=== PATIENT | female | born 1935 | race Caucasian/White ===

== ENCOUNTER 2016-09-05 12:23 | Observation (INO) | payer MEDICARE ==
[2016-09-05 13:01] LABS: HEMATOCRIT 43.2 % (36.0-48.0); MEAN CORPUS. HGB CONCENTRATION 34.7 g/dL (32.0-36.0); MEAN CORPUSCULAR HEMOGLOBIN 31.6 pg (29.0-35.0); MEAN PLATELET VOLUME 9.6 fL (7.4-10.4); PLATELET COUNT 223 X 10^3uL (130-440); RED BLOOD COUNT 4.74 X 10^6uL (4.20-6.10); RED CELL DISTRIBUTION WIDTH 12.1 % (11.5-14.5); WHITE BLOOD COUNT 7.9 X 10^3uL (3.9-10.7)
[2016-09-05 13:02] LABS: BASOPHILS 0.5 % (0.0-2.0); EOSINOPHILS 0.6 % (0.0-6.0); LYMPHOCYTES 22.4 % (20.0-40.0); LYMPHOCYTES# 1.8 X 10^3uL (0.8-3.8); MONOCYTES# 0.8 X 10^3uL (0.2-1.0); NEUTROPHILS 6.5 % (54.0-75.0); NEUTROPHILS# 5.3 X 10^3uL (2.6-6.7)
[2016-09-05 13:10] LABS: BLOOD UREA NITROGEN 16 mg/dL (7-17); CALCIUM 9.2 mg/dL (8.4-10.2); CHLORIDE 102 mmol/L (98-107); CREATININE 0.7 mg/dL (0.5-1.0); GLUCOSE 81 mg/dL (70-100); POTASSIUM 4.4 mmol/L (3.5-5.1); SODIUM 139 mmol/L (137-145)
[2016-09-05] MEDS ORDERED: NICARDIPINE IV ONE (13:14)
[2016-09-05] MEDS ORDERED: NS IV ONE (13:14)
[2016-09-05 13:22] LABS: TROPONIN I < 0.012 ng/mL (0.00-0.034)
--- NOTE | 2016-09-05 13:24 | CT REPORT ---
HISTORY: Arm weakness. COMPARISON: None. TECHNIQUE: Axial non-contrast images obtained from skull vertex through foramen magnum. Dose reduction technique was utilized. FINDINGS: The ventricles, sulci and cisterns are prominent, consistent with age related tissue loss. There is p atchy low attenuation within the periventricular and subcortical white matter, nonspecific in appeara nce. The fall-white distinction is well maintained. Focal low attenuation in the left insula (image 1 0, series 2) at the level of the anterior commissure may reflect perivascular space or lacunar infarc t of indeterminate age. There is no intra-axial hemorrhage, mass, midline shift or large vessel acute territorial infarct. There is no extra axial fluid collection. The globes are intact. The paranasal sinuses appear clear. The mastoids appear well aerated. The bone s and soft tissues appear unremarkable. IMPRESSION: No evidence of acute intracranial hemorrhage or large vessel acute territorial infarct. Moderate cerebral atrophy and scattered white matter changes, nonspecific in appearance, likely refle cting the sequela of small vessel ischemic disease. Low-attenuation focus within the left insula may reflect lacunar infarct of indeterminate age versus perivascular space. The abnormality may further evaluated with MRI. Final Electronic Signature: This report was electronically signed by Milan Eastman MD on 09/06/19 17 1:22 PM. enrico /
--- NOTE | 2016-09-05 13:46 | RADIOLOGY REPORT ---
A limited single portable view of the chest at 1247 hours without prior films for comparison, demonstrates the heart and vessels to be unremarkable. Calcifications and surgical clips are projecting in the right mid lung field region, presumably involve the right breast. No infiltrate, fluid or pneumothorax is seen. IMPRESSION: No acute cardiopulmonary abnormality is identified. Probable right breast post surgical changes are noted. MTDD
--- NOTE | 2016-09-05 15:26 | MRI REPORT ---
HISTORY: Right-sided weakness. Evaluate for stroke. COMPARISON: None. TECHNIQUE: Multiplanar multi sequential imaging of the brain obtained without IV gadolinium. FINDINGS: There is moderate cerebral volume loss. Ventricles are normal in size. Multiple foci of chronic small vessel ischemic disease involves the cerebral white matter and. No focus of restricted diffusion is demonstrated. There is no hemorrhage or extra-axial fluid collection or vascular flow voids appear no rmal. No intracranial mass is demonstrated. Orbits and visualized paranasal sinuses appear unremarkable. A left parotid gland mass is lobulated and measures 2.6 x 1.6 cm. The mass is hypointense on T1-weighte d images and hyperintense on T2-weighted images, consistent with mostly fluid signal intensity. IMPRESSION: 1. Scattered foci of chronic small vessel ischemic disease in the cerebral white matter. No acute inf arct or hemorrhage. 2. Moderate cerebral atrophy. 3. 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 Recommend ENT consultation. If further bakari ging is warranted, dedicated MRI of the face without and with contrast could be performed for further evaluation. Results were personally discussed with Dr. Dillon Allen on 09/05/2016 at 3:20 PM. Final Electronic Signature: This report was electronically signed by Rian Darnell MD on 09/05/2016 3:23 PM. [email or web address] /
[2016-09-05] MEDS ORDERED: HOME MEDICATION LIST NEEDED 1 EA EACH MC ONE (15:33)
--- NOTE | 2016-09-05 15:56 | ER NURSING DOCUMENTATION ---
Nurse's Notes [facility] Name:Janeth Pepe Age:80 yrs Sex:Female :1935 Arrival Date:09/05/2016 Time:12:23 BedTrauma-A Private MD:Lilli Patel Diagnosis:Altered Mental Status Presentation: 09/05 12:27 Acuity: MARILEE 2 st 12:39 Presenting complaint: Patient states: right arm weakness since yesterday sometime. sc1 She's not sure exactly what time she noticed it. Transition of care: Home. Time Last Known Well for patient was yesterday. 12:39 Method Of Arrival: Private Vehicle sc1 15:54 No acute neurological deficit is noted. ak1 Triage Assessment: 12:49 The onset of the patients symptoms was more than six hours ago. General: Appears in no sc1 apparent distress, well developed, well nourished, well groomed, Behavior is cooperative, pleasant. Pain: Denies pain. Neuro: Reports weakness in right arm since Yesterday. Historical: - Allergies: PENICILLINS; - Home Meds: 1. paroxetine HCl 20 mg oral tab 1 tab once daily 2. Latanoprost 3. Prilosec Oral 4. Zyrtec Oral 5. aspirin 81 mg oral tab 1 tab once daily 6. ProAir 7. pravastatin 20 mg oral tab 1 tab once daily 8. Pulmicort Inhl - PMHx: Breast CA; GLAUCOMA; ASTHMA; Hypoxemia; - PSHx: Hysterectomy; - Ebola Screening: : Patient negative for fever greater than or equal to 101.5 degrees Fahrenheit, and additional compatible Ebola Virus Disease symptoms. Patient denies exposure to infectious person. Patient denies travel to an Ebola-affected area in the 21 days before illness onset. No symptoms or risks identified at this time. . - Immunization history: Pneumococcal vaccine is up to date, Flu Vaccine < 1 year. - Social history: Smoking status: Patient states was never smoker of tobacco. Patient/guardian denies using alcohol, street drugs, IV drugs, marijuana. Screenin:52 Infectious Disease Risk None. Abuse screen: Denies threats or abuse. Nutritional sc1 screening: No deficits noted. Assessment: 15:40 Reassessment: No changes from previously documented assessment. Patient appears in no sc1 apparent distress at this time. See Triage Assessment done by same RN. Vital Signs: 12:30 BP 128 / 69 (auto/); sc1 12:45 BP 115 / 75 (auto/); sc1 12:45 Pulse 91; Resp 18; Temp 98.2; Pulse Ox 93% on R/A; sc1 15:50 BP 137 / 69 (auto/); sc1 15:50 Pulse 73; Resp 16; Pulse Ox 95% on R/A; sc1 NIH Stroke Scale Scores: 12:39 NIHSS Score: 0 ak1 ED Course: 12:24 Patient arrived in ED. lm3 12:24 Lilli Patel MD is Private Physician. lm3 12:26 Dillon Allen MD is Attending Physician. sc 12:[address] 12:34 EKG done per protocol. Performed by ED Staff. Shown to ED physician. st 12:35 Labs drawn. (by ED staff). Sent per order to lab. Inserted peripheral IV: 20 gauge in ak1 left antecubital area and blood collected. 12:39 Lisa Lowery, RN is Primary Nurse. sc1 12:50 Valuables Remains with patient. steam setter on. Pulse ox on. NIBP on. sc1 12:54 CHEST; SINGLE VIEW [id number] In Process Unspecified. EDMS 13:05 CAT SCAN; HEAD W/O CON [id number] In Process Unspecified. EDMS 13:10 CAT SCAN; HEAD W/O CON [id number] In Process Unspecified. EDMS 13:10 CHEST; SINGLE VIEW [id number] Sent. dnn 13:10 CAT SCAN; HEAD W/O CON [id number] Sent. dnn 14:28 Patient moved to MRI. pm1 14:52 BRAIN W/O CONTRAST [id number] In Process Unspecified. EDMS 15:13 Patient moved back from MRI. pm1 15:36 Joleen Brooke DO is Admitting Physician. sc 15:52 EKG attached ak1 Administered Medications: 12:28 CANCELLED (Physician Discretion): niCARdipine IVPB 5 mg/hr IV at calculated rate sc continuous; May increase rate 2.5 mg/hr every 5 minutes to max 15 mg/hr Outcome: 15:36 Decision to Admit by Provider. sc 15:53 Admitted to Med/surg accompanied by nurse, via stretcher, with chart. sc1 15:53 Condition: stable 15:53 Instructed on need to admit 15:54 Patient left the ED. sc1 NIH Stroke Scale - NIH Stroke Score Date: 09/05/2016 Time: 12:39 Total Score = 0 1a. Level of Consciousness (LOC) - 0(Alert) 1b. Level of Consciousness (LOC) (Year & Age) - 0(Both) 1c. LOC Commands (Open & Closes Eyes/Personal Financial Counselor) - 0(Both) 2. Best Gaze (Lateral Gaze Paresis) - 0(Normal) 3. Visual Field Loss - 0(No visual loss) 4. Facial Palsy - 0(Normal) 5a. Left Arm: Motor (10-second hold) - 0(No drift) 5b. Right Arm: Motor (10-second hold) - 0(No drift) 6a. Left Leg: Motor (5-second hold ? always test supine) - 0(No drift) 6b. Right Leg: Motor (5-second hold ? always test supine) - 0(No drift) 7. Limb Ataxia (finger/nose & heel/cavazos ? test with eyes open) - 0(Absent) 8. Sensory Loss (pinprick arms/legs/face) - 0(Normal) 9. Best Language: Aphasia (description/naming/reading) - 0(No aphasia) 10. Dysarthria (speech clarity ? read or repeat words) - 0(Normal) 11. Extinction and Inattention (visual/tactile/auditory/spatial/personal) - 0(No abnormality) Initials: ak1 Signatures: Dispatcher [employer] EDMS Chichi Ambrocio RN RN st Campbell, Sandy, RN RN ak1 Dillon Allen MD MD sc McBride, Philisha 1 Yao Bassett Lisa 3
--- NOTE | 2016-09-05 15:56 | ER PHYSICIAN DOCUMENTATION ---
Physician Documentation [facility] Name:Janeth Pepe Age:80 yrs Sex:Female :1935 Arrival Date:09/05/2016 Time:12:23 BedTrauma-A Private MD:Lilli Patel ED, Scott Disposition: 09/05/16 15:36 Admit ordered for Joleen Brooke. Preliminary diagnosis is Altered Mental Status. - Bed requested for Medical/Surgical. - Condition is Good. - Problem is new. - Symptoms are unchanged. 23 HR OBS Yes HPI: 09/05 12:58 This 80 yrs old Female presents to ER via Private Vehicle with complaints of sc Weakness - arm. 12:58 The patient presents to the emergency department with weakness of the right upper sc extremity, that is mild, impaired coordination. Onset: The symptom(s)/episode began/occurred yesterday, 20 hour(s) ago. Context: occurred at home, occurred while the patient was gradual onset, unsure of exact time yesterday noon or sltly after but definitely at 8 pm and unchanged since. Associated signs and symptoms: The patient has no apparent associated signs or symptoms. Severity of symptoms: At their worst the symptoms were mild in the emergency department the symptoms are unchanged. Patient's baseline: Neuro: alert and fully oriented, Motor: no deficits, Ambulation: walks without assistance, Speech: normal, The patient has a previous history of heart murmur. The patient has not experienced similar symptoms in the past. Historical: - Allergies: PENICILLINS; - Home Meds: 1. paroxetine HCl 20 mg oral tab 1 tab once daily 2. Latanoprost 3. Prilosec Oral 4. Zyrtec Oral 5. aspirin 81 mg oral tab 1 tab once daily 6. ProAir 7. pravastatin 20 mg oral tab 1 tab once daily 8. Pulmicort Inhl - PMHx: Breast CA; GLAUCOMA; ASTHMA; Hypoxemia; - PSHx: Hysterectomy; - Ebola Screening: : Patient negative for fever greater than or equal to 101.5 degrees Fahrenheit, and additional compatible Ebola Virus Disease symptoms. Patient denies exposure to infectious person. Patient denies travel to an Ebola-affected area in the 21 days before illness onset. No symptoms or risks identified at this time. . - Immunization history: Pneumococcal vaccine is up to date, Flu Vaccine < 1 year. - Social history: Smoking status: Patient states was never smoker of tobacco. Patient/guardian denies using alcohol, street drugs, IV drugs, marijuana. ROS: 13:00 Constitutional: Negative for fever, chills, and weight loss. sc Eyes: Negative for injury, pain, redness, and discharge. ENT: Negative for injury, pain, and discharge. Neck: Negative for injury, pain, and swelling. Cardiovascular: Negative for chest pain, palpitations, and edema. Respiratory: Negative for shortness of breath, cough, wheezing, and pleuritic chest pain. Abdomen/GI: Negative for abdominal pain, nausea, vomiting, diarrhea, and constipation. Back: Negative for injury and pain. MS/Extremity: Negative for injury and deformity. 13:00 Skin: Negative for injury, rash, and discoloration. sc 13:00 Neuro: Positive for weakness, Negative for altered mental status, dizziness, gait disturbance, loss of consciousness, numbness, syncope, tingling. Exam: Constitutional: This is a well developed, well nourished patient who is awake, alert, and in no acute distress. Head/Face: Normocephalic, atraumatic. ENT: Nares patent. No nasal discharge, no septal abnormalities noted. Tympanic membranes are normal and external auditory canals are clear. Oropharynx with no redness, swelling, or masses, exudates, or evidence of obstruction, uvula midline. Mucous membranes moist. Neck: Trachea midline, no thyromegaly or masses palpated, and no cervical lymphadenopathy. Supple, full range of motion without nuchal rigidity, or vertebral point tenderness. No meningismus. Chest/axilla: Normal chest wall appearance and motion. Nontender with no deformity. No lesions are appreciated. Respiratory: Lungs have equal breath sounds bilaterally, clear to auscultation and percussion. No rales, rhonchi or wheezes noted. No increased work of breathing, no retractions or nasal flaring. Abdomen/GI: Soft, non-tender, with normal bowel sounds. No distension or tympany. No guarding or rebound. No evidence of tenderness throughout. Back: No spinal tenderness. No costovertebral tenderness. Full range of motion. 13:01 Skin: Warm, dry with normal turgor. Normal color with no rashes, no lesions, and no sc evidence of cellulitis. 13:01 Eyes: Pupils: equal, round, and reactive to light and accomodation. 13:01 Cardiovascular: Rate: normal, Rhythm: regular. 13:01 Neuro: Motor: is normal, Sensation: is normal, no obvious gross deficits. 13:01 Psych: Behavior/mood is pleasant, cooperative, anxious, Affect is calm, Oriented to person, place, time, Memory is normal. Vital Signs: 12:30 BP 128 / 69 (auto/); sc1 12:45 BP 115 / 75 (auto/); md1 12:45 Pulse 91; Resp 18; Temp 98.2; Pulse Ox 93% on R/A; sc1 15:50 BP 137 / 69 (auto/); md1 15:50 Pulse 73; Resp 16; Pulse Ox 95% on R/A; sc1 NIH Stroke Scale Scores: 12:39 NIHSS Score: 0 md1 MDM: 12:26 Patient medically screened. md 13:02 Neurological re-evaluation: normal neurological exam including cranial nerves, sc orientation, mentation, motor and sensory exam, cerebellar testing, GCS normal, and normal gait. The patient was last known to be well greater than 2 hours ago. Thrombolytics: No thrombolytic given due to patient's history due to unable to determine eligibility. Data reviewed: vital signs, nurses notes, old medical records, lab test result(s), EKG, radiologic studies, CT scan, plain films, and as a result, I will initiate a consult. Counseling: I had a detailed discussion with the patient and/or guardian regarding: the historical points, exam findings, and any diagnostic results supporting the discharge/admit diagnosis, lab results, radiology results, the need for further work-up and treatment in the hospital, the need to transfer to another facility. ECG:. 15:18 ED course: Discussed f/u needed for left parotid cystic mass, could be neoplasm. md 15:35 Physician consultation: Rolly Santana MD was called at 14:00, regarding patient's sc condition. 15:35 Transition of care: After a detail discussion of the patient's case, care is sc transferred to [facility]. 15:52 EKG attached [facility] [place] 09/05 13:02 Order name: CBC AUTO DIF, MDIF/RMOR IF IND; Complete Time: 13:27 EDID 09/05 13:27 Interpretation: Normal. md 09/05 13:23 Order name: BASIC METABOLIC PANEL; Complete Time: 13:32 EDID 09/05 13:23 Order name: TROPONIN I; Complete Time: 13:32 EDMS 09/06 05:48 Order name: BASIC METABOLIC PANEL [facility] 09/06 05:53 Order name: CBC AUTO DIF, MDIF/RMOR IF IND EDID 09/05 12:54 Order name: CHEST; SINGLE VIEW [id number]; Complete Time: 13:47 EDID 09/05 13:47 Interpretation: Normal. md 09/05 13:05 Order name: CAT SCAN; HEAD W/O CON [id number]; Complete Time: 13:27 EDID 09/05 13:27 Interpretation: Normal Except. md 09/05 13:26 Order name: CAT SCAN; HEAD W/O CON [id number]; Complete Time: 13:32 EDID 09/05 14:52 Order name: BRAIN W/O CONTRAST [id number]; Complete Time: 15:18 [facility] 09/05 15:18 Interpretation: Normal Except: left parotid mass. md 09/05 15:26 Order name: BRAIN W/O CONTRAST [id number] EDID 09/05 15:32 Order name: CHEST; SINGLE VIEW [id number] [facility] 09/05 12:27 Order name: 12-lead EKG; Complete Time: 12:41 md 09/05 12:27 Order name: Continuous Cardiac Monitoring; Complete Time: 13:00 md 09/05 12:27 Order name: I & O; Complete Time: 13:00 md 09/05 12:27 Order name: IV saline lock X2; Complete Time: 13:00 md 09/05 12:27 Order name: NIH Stroke Scale; Complete Time: 13:00 md 09/05 12:27 Order name: NPO; Complete Time: 13:00 md 09/05 12:27 Order name: Pulse Ox Continuous; Complete Time: 13:00 md 09/05 12:27 Order name: Elevate HOB 30 degrees; Complete Time: 13:00 md EC:02 Rate is 70 beats/min. Rhythm is regular. QRS [place] is Normal. MD interval is normal. QRS sc interval is normal. QT interval is normal. No Q waves. T waves are Normal. No ST changes noted. Clinical impression: Normal ECG. Interpreted by me. Reviewed by me. Dispensed Medications: 12:28 CANCELLED (Physician Discretion): niCARdipine IVPB 5 mg/hr IV at calculated rate sc continuous; May increase rate 2.5 mg/hr every 5 minutes to max 15 mg/hr NIH Stroke Scale - NIH Stroke Score Date: 09/05/2016 Time: 12:39 Total Score = 0 1a. Level of Consciousness (LOC) - 0(Alert) 1b. Level of Consciousness (LOC) (Year & Age) - 0(Both) 1c. LOC Commands (Open & Closes Eyes/Dining Room Cashier) - 0(Both) 2. Best Gaze (Lateral Gaze Paresis) - 0(Normal) 3. Visual Field Loss - 0(No visual loss) 4. Facial Palsy - 0(Normal) 5a. Left Arm: Motor (10-second hold) - 0(No drift) 5b. Right Arm: Motor (10-second hold) - 0(No drift) 6a. Left Leg: Motor (5-second hold ? always test supine) - 0(No drift) 6b. Right Leg: Motor (5-second hold ? always test supine) - 0(No drift) 7. Limb Ataxia (finger/nose & heel/cavazos ? test with eyes open) - 0(Absent) 8. Sensory Loss (pinprick arms/legs/face) - 0(Normal) 9. Best Language: Aphasia (description/naming/reading) - 0(No aphasia) 10. Dysarthria (speech clarity ? read or repeat words) - 0(Normal) 11. Extinction and Inattention (visual/tactile/auditory/spatial/personal) - 0(No abnormality) Initials: sc1 Signatures: Lisa Lowery RN RN md1 Dillon Allen MD MD md
[2016-09-05] MEDS ORDERED: ACETAMINOPHEN 325 MG TABLET PO PRN (17:04)
[2016-09-05] MEDS ORDERED: MAG-AL PLUS XS SUSP 30 ML UDC PO PRN (17:04)
[2016-09-05] MEDS ORDERED: ALBUTEROL HFA 1 INH INHALER INHALATION PRN (17:06)
[2016-09-05] MEDS ORDERED: PAROXETINE HCL 20 MG TABLET PO SCH (18:00)
--- NOTE | 2016-09-05 20:25 | HISTORY & PHYSICAL ---
DATE OF ADMISSION: 09/05/16 ATTENDING PHYSICIAN: Joleen Brooke MD PRIMARY CARE PHYSICIAN: Lilli Patel MD COVERING PHYSICIAN: Marco Antonio Harrison MD CHIEF COMPLAINT: Right hand loss of dexterity. HISTORY OF PRESENT ILLNESS: The patient is an 80-year-old female who first noticed some weakness and decreased dexterity in her right hand yesterday morning. She states that she was trying to do her hair and had some trouble navigating the brush which was atypical for her. Later that day she noted that her was watching her attempting to make a sandwich and she was having some difficulties with the use of her hand at that time. She subsequently continued to monitor her symptoms, and since they persisted, she did contact today triage and was recommended to come into the Emergency Room for further evaluation. Patient states that the symptoms have not really changed since she first noticed them yesterday, and she is very embarrassed by the fact that she is here at the hospital related to this cause. She denies any other neurological complaints. No loss of memory. No change in speech. No facial or other weakness. Patient is planning to leave early Friday morning to travel to [place] for her youngest grandsons graduation, and she would really like to make it to this and subsequently is willing to stay tonight for observation, but would like to go home tomorrow if possible. PAST MEDICAL HISTORY 1. History of breast cancer. 2. Anxiety. 3. History of rheumatic fever with mitral valve prolapse and aortic valve insufficiency. 4. Asthma. 5. Hypoxia. 6. Hyperlipidemia. 7. Glaucoma. PAST SURGICAL HISTORY 1. Hysterectomy in 1985. 2. Cataract surgery. 3. Tonsillectomy. FAMILY HISTORY: Her mother is in her 90s and had dementia. Father at 72 and of prostate cancer. Brother in his 60s from pneumonia and chronic obstructive pulmonary disease. SOCIAL HISTORY: Patient is a former smoker, but not for some time. She does drink alcohol occasionally. She denies any other drugs. MEDICATIONS Paroxetine 20 mg daily. Latanoprost. Eye drops. Prilosec. Zyrtec. Aspirin 81 mg daily. ProAir as needed. Pravastatin 20 mg 1 tab once daily. Pulmicort twice daily. ALLERGIES: Amoxicillin and Latex. REVIEW OF SYSTEMS GENERAL: Patient denies fatigue, fever, chills or weight loss. HEENT: She has a slight headache right now. No visual changes. No sore throat. CARDIOVASCULAR: She denies chest pain, palpitations or swelling. RESPIRATORY: No shortness of breath, cough or wheezing. She has had very well controlled asthma. ABDOMEN: Denies nausea, vomiting, diarrhea and constipation. MUSCULOSKELETAL: She denies any injury, although she does have the weakness and decreased dexterity in her right hand compared to the left. NEURO: She denies any altered mental status. Denies dizziness. Denies difficulties with ambulation. Denies numbness or tingling. PHYSICAL EXAMINATION VITAL SIGNS: On arrival to the floor, she is afebrile with temperature of 36.6, blood pressure 137/69, pulse 76, respiratory rate 18. She is 94% on room air. GENERAL: Patient is comfortable in bed. No acute distress. Somewhat frustrated by the fact that she is here in the hospital instead of home packing for her grandsons graduation. HEENT: Normocephalic, atraumatic. She does have behind the parotid which seems to be more prominent than the right side. Neck is supple with normal range of motion. No carotid bruits noted. Thyroid gland is normal size and consistency. Eyes are accommodating. Pupils are equal and reactive. Oropharynx is clear. CHEST: She has symmetric air movements. Clear to auscultation bilaterally. CARDIOVASCULAR: She has S1, S2 with a slight midsystolic murmur 2/6 in the mitral area. ABDOMEN: Soft, nontender, nondistended. Normal bowel sounds. PERIPHERAL VASCULAR: Radial pulse 2+ bilaterally. No digital clubbing. EXTREMITIES: Upper and lower extremity, she has no swelling and edema. MUSCULOSKELETAL: She does have arthritic changes in her hands, but she has 5/5 strength in her fingers. NEUROLOGIC: Cranial nerves 2-12 were intact. She is alert and oriented x3. Finger-nose, she does have some difficulty when comparing right side to the left , but at baseline, she has some mild difficulty with this. I did ask patient to sign her name and she was able to so. She says that it is slightly different than her typical signature. Unable to truly demonstrate any significant weakness in that right hand however. PSYCHIATRIC: Patient is alert and oriented. She is slightly anxious and somewhat embarrassed in regards to being here at the hospital. LABORATORY: CBC which showed a white count of 7.9, hemoglobin 15, hematocrit 43.2, platelets of 223, sodium 139, potassium 4.4, chloride 102, bicarb 25, BUN 16, creatinine 0.7, glucose of 81, calcium of 9.2. Troponin was less than 0.012. IMAGING: Chest x-ray which showed no acute changes. She had a CT head which showed no acute hemorrhage or infarct. She has moderate cerebral atrophy. 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 Moderate cerebral atrophy. She had an incidental finding of a left parotid cystic mass, which will need further evaluation with MRI or ENT evaluation. ASSESSMENT/PLAN: This is an 80-year-old female who is being admitted for further observation regarding loss of dexterity and subjective weakness of her right hand without clear etiology. 1. Right hand, loss of dexterity. Subjective weakness. Again, exam is difficult as only unable to truly recreate her dexterity issues. She has had both a CT and an MRI which showed no acute changes. Request from Emergency Department physician was to be admitted for further observation and probable carotid ultrasound tomorrow morning. With her history of rheumatic fever and valvular disease as well as her cerebral atrophy and small vessel ischemic disease, agree that we can do further monitoring and arrange for carotid ultrasound tomorrow. If symptoms worsen, patient would likely benefit from MRA to further evaluate vasculature of the brain. Patient is on a daily aspirin. Blood pressure is well controlled and is also on a statin medication. Will transition care tomorrow to Dr. Harrison, who will help with ongoing evaluation if indicated. 2. Left parotid mass. Again, this is an incidental finding on the MRI, but palpation, she does have fullness on the left side when compared to the right. Will need further follow up in the outpatient realm, either referral to ENT versus a repeat MRI to further evaluation that. 3. Anxiety. Patient currently is on Paroxetine, continue medication. 4. Asthma. Well controlled with Pulmicort and ProAir. Will have ProAir available as needed. Pulmicort is not on formulary since only anticipate short stay. Will hold medication at this time. 5. Hyperlipidemia. Physical with Dr. Patel this May. Will continue medication. 6. Disposition. Again patient is being admitted tonight for further observation as we do not have a clear cause of her symptoms. Will try to arrange for carotid ultrasound tomorrow morning, and at that time, if normal, patient is requesting to go home. She does have plan to leave the state to go to [place] for her grandsons graduation and would like to be able to get home to get ready to do that. 7. Patient is full COR, full tube. 8. Deep vein thrombosis prophylaxis. At this time, will just put SCDs in place overnight as we are further monitoring for any potential vascular cause of her symptoms. Copies to: Dr. Patel, Dr. Christy SANDERSON
[2016-09-05] MEDS: POLYVINYL ALCOHOL 1.4% OPHTH 75 DROP/15 ML BTL EACHEYE SCH (20:47)
[2016-09-05] MEDS ORDERED: LATANOPROST 0.005% EACHEYE SCH (21:00)
[2016-09-05] MEDS ORDERED: PRAVASTATIN SODIUM 40 MG TABLET PO SCH (21:00)
[2016-09-05] MEDS: BRIMONIDINE TARTRATE 0.15% EACHEYE SCH (21:12)
[2016-09-06 05:37] LABS: BASOPHILS 0.6 % (0.0-2.0); EOSINOPHILS 1.7 % (0.0-6.0); EOSINOPHILS# 0.1 X 10^3uL (0.0-0.4); HEMATOCRIT 41.8 % (36.0-48.0); HEMOGLOBIN 14.4 g/dL (12.0-16.0); LYMPHOCYTES 34.1 % (20.0-40.0); LYMPHOCYTES# 1.8 X 10^3uL (0.8-3.8); MEAN CELL VOLUME 90.6 fL (80.0-100.0); MEAN CORPUS. HGB CONCENTRATION 34.4 g/dL (32.0-36.0); MEAN CORPUSCULAR HEMOGLOBIN 31.2 pg (29.0-35.0); MEAN PLATELET VOLUME 9.4 fL (7.4-10.4); MONOCYTES# 0.9 X 10^3uL (0.2-1.0); NEUTROPHILS 47.2 % (54.0-75.0); NEUTROPHILS# 2.4 X 10^3uL (2.6-6.7); PLATELET COUNT 222 X 10^3uL (130-440); RED BLOOD COUNT 4.62 X 10^6uL (4.20-6.10); RED CELL DISTRIBUTION WIDTH 12.3 % (11.5-14.5); WHITE BLOOD COUNT 5.2 X 10^3uL (3.9-10.7)
[2016-09-06 05:43] LABS: BLOOD UREA NITROGEN 17 mg/dL (7-17); CALCIUM 9.2 mg/dL (8.4-10.2); CHLORIDE 105 mmol/L (98-107); CREATININE 0.8 mg/dL (0.5-1.0); GLUCOSE 95 mg/dL (70-100); POTASSIUM 4.2 mmol/L (3.5-5.1); SODIUM 142 mmol/L (137-145)
[2016-09-06 05:52] LABS: MONOCYTES 16.4 % (2.0-10.0)
[2016-09-06] MEDS ORDERED: PANTOPRAZOLE 40 MG TABLET PO SCH (06:30)
[2016-09-06 06:46] VITALS: BP 151/67; PULSE 73; RESP 20; TEMP 97.7; O2SAT 93
--- NOTE | 2016-09-06 08:27 | DC SUMMARY: IM Note ---
Discharge Summary: IM/Peds Provider: Date of Admission: 09/05/16 Admitting Provider: NIHARIKA SPRAGUE Attending Provider: LUZ ELENA CERDA MD Discharging Provider: AALIYAH CHAN MD Primary Care Provider: Discharge Date: 09/06/16 - Diagnosis (1) Weakness of right upper extremity Status: Acute (2) Carotid stenosis, bilateral Status: Acute (3) Parotid mass Status: Acute (4) Parotid cyst Status: Acute (5) Hypercholesterolemia Status: Acute (6) Asthma, mild intermittent, well-controlled Status: Acute (7) Anxiety Status: Acute Hospital Course: patient admitted for right and weakness and decreased coordination. CT scan of the brain showing small vessel disease and question of possible hypodensity in the left insula. However, subsequent MRI scan of the brain without contrast showed no clear evidence of ischemia. Incidentally noted was left parotid lobulated cystic mass. She had gradual improvement but still had left hand weakness, particularly with left wrist dorsiflexion, index finger to thumb, and finger abduction. Carotid ultrasound was done and showed moderate stenosis bilaterally with 50-69% on the right and 50% on the left. She had no other areas of neurologic dysfunction by symptoms or exam. Due to lack of clear explanation, I recommended repeat echocardiogram as well as MRI scan of cervical spine. She declines and would like to reassess in outpatient setting. I did recommend that she increase aspirin to 325milligrams per day. She will continue with her cholesterol regimen. She can be reassessed in outpatient setting for more aggressive blood pressure control. She can consider more aggressive management of her carotid arteries in the outpatient setting depending upon her course. She will need to consider echocardiogram, MRI scan of the cervical spine, possibly nerve conduction velocity studies in the outpatient setting. She will need a dedicated MRI of her left parotid gland plus or minus ENT consultation for the incidentally noted left parotid cyst. Finally, depending upon her course, she should be considered for physical therapy and occupational therapy. As she wishes to leave without clear explanation for her symptoms (although presumed CVA) and with continued abnormality on exam, we did spend considerable time on precautions. She will have a low threshold for seeking emergent care if she has any recurrence/worsening. - Time Spent with Patient Total time spent providing and/or coordinating discharge services: Discharge - Patient/Caregiver Discharge Instructions Activity Level: As tolerated. Diet: Cardiac. Follow up: LUZ ELENA CERDA MD [Primary Care Provider] - 09/18/16 3:45 pm Overall discharge status: patient is not back to baseline, patient is progressing back to baseline Print Language: WOLOF Home Medications: aspirin EC [Aspirin EC*] 325 mg PO DAILY #30 tab Omeprazole Magnesium [Prilosec Otc] 20 mg PO DAILY #30 tab Disposition: HOME, SELF-CARE Discharge Summary Data - Medication History Medication History: Home Medications Albuterol Hfa [Proventil Inhaler*] 2 inh PO QID PRN 09/05/16 Brimonidine Tartrate [Alphagan P] 1 drop EACHEYE BID 09/05/16 Latanoprost 0.005% Ophth [Xalatan 0.005% Ophth Soln*] 1 drop EACHEYE HS Paroxetine HCl [Paroxetine HCl*] 20 mg PO EVERY MORNING 09/05/16 Polyvinyl Alcohol 1.4% Ophth [Teargen*] 1 drop EACHEYE TID 09/05/16 Pravastatin Sodium [Pravastatin Sodium*] 20 mg PO HS 09/05/16 Acetaminophen [Tylenol*] 650 mg PO Q6H PRN #0 tablet 09/06/16 Budesonide [Pulmicort Flexhaler] 180 mcg INHALATION BID #0 09/06/16 Omeprazole Magnesium [Prilosec Otc] 20 mg PO DAILY #30 tab 09/06/16 aspirin EC [Aspirin EC*] 325 mg PO DAILY #30 tab 09/06/16 Inpatient Medications 09/05/16 17:04 Acetaminophen [Tylenol] 650 mg PO Q6H PRN Mag-Al Plus Xs Susp [Maalox Liquid] 30 ml PO Q4H PRN 09/05/16 17:06 Albuterol Hfa [Proventil Hfa Inhaler] 2 inh INHALATION QID PRN 09/05/16 18:00 Paroxetine HCl [Paxil] 20 mg PO EVERY MORNING 09/05/16 21:00 Brimonidine Tartrate [Alphagan P] 1 drop EACHEYE BID Latanoprost 0.005% Ophth [Xalatan 0.005% Ophth Soln] 1 drop EACHEYE HS Polyvinyl Alcohol 1.4% Ophth [Teargen] 1 drop EACHEYE TID Pravastatin Sodium [Pravachol] 20 mg PO HS 09/06/16 06:30 Pantoprazole [Protonix] 40 mg PO BEFORE BREAKFAST 09/06/16 09:00 aspirin EC [Ecotrin] 325 mg PO DAILY Procedures and tests throughout hospitalization: Completed Lab Orders 09/06/16 05:15 BASIC METABOLIC PANEL [CHEM] AMDRAW CBC AUTO DIF, MDIF/RMOR IF IND [HEM] AMDRAW Pending Orders 09/05/16 17:04 Sequential Compression Device WHILE IN BED Titrate Oxygen TITRATE TO >90% Animal Attendant Consult [CM] Routine Acetaminophen [Tylenol] 650 mg PO Q6H PRN Mag-Al Plus Xs Susp [Maalox Liquid] 30 ml PO Q4H PRN 09/05/16 17:05 VTE Prophylaxis Scoring/ Ordering Routine 09/05/16 17:06 Albuterol Hfa [Proventil Hfa Inhaler] 2 inh INHALATION QID PRN 09/05/16 17:07 Carotid Duplex, Bilateral [CARDIO] Routine 09/05/16 18:00 Paroxetine HCl [Paxil] 20 mg PO EVERY MORNING 09/05/16 21:00 Brimonidine Tartrate [Alphagan P] 1 drop EACHEYE BID Latanoprost 0.005% Ophth [Xalatan 0.005% Ophth Soln] 1 drop EACHEYE HS Polyvinyl Alcohol 1.4% Ophth [Teargen] 1 drop EACHEYE TID Pravastatin Sodium [Pravachol] 20 mg PO HS 09/06/16 06:30 Pantoprazole [Protonix] 40 mg PO BEFORE BREAKFAST 09/06/16 09:00 aspirin EC [Ecotrin] 325 mg PO DAILY Labs on day of discharge: Labs from last 24 hours 09/06/16 05:15 WBC 5.2 RBC 4.62 Hgb 14.4 Hct 41.8 MCV 90.6 MCH 31.2 MCHC 34.4 RDW 12.3 Plt Count 222 MPV 9.4 Neutrophils % 47.2 L Lymphocytes % 34.1 Eosinophils % 1.7 Basophils % 0.6 Neutrophils # 2.4 L Lymphocytes # 1.8 Monocytes 16.4 H Monocytes # 0.9 Eosinophils # 0.1 Basophils # 0.0 Sodium 142 Potassium 4.2 Chloride 105 Carbon Dioxide 26 BUN 17 Creatinine 0.8 GFR Calculation Not Reportable Glucose 95 Calcium 9.2 IM: Discharge Physical Exam - I&O/Vital Signs I&O: Intake & Output 09/05/16 09/06/16 09/06/16 21:59 05:59 13:59 Intake Total 340 400 Output Total 300 Balance 340 100 Weight 47.627 kg 47.627 kg 49.5 kg Intake: Oral 340 400 Output: Urine 300 Other: Voiding Method Toilet # Voids 1 Vital Signs: Last Vital Signs Temp 36.5 C 09/06/16 06:46 Pulse 73 09/06/16 06:46 Resp 20 09/06/16 06:46 BP 151/67 09/06/16 06:46 Pulse Ox 93 09/06/16 06:46 Oxygen Delivery Method Room Air - Constitutional General appearance: Present: thin. Absent: acute distress - Head Head exam: Present: atraumatic, normocephalic - Eye Eye exam: Present: PERRL - ENT ENT exam: Present: mucous membranes moist - Neck Neck exam: Absent: lymphadenopathy - Respiratory Respiratory exam: Present: CTAB. Absent: rales, rhonchi, wheezes - Cardiovascular Cardiovascular exam: Present: RRR, systolic murmur (best heard at apex and left lower sternal border). Absent: S3, S4 - GI/Abdominal GI/Abdominal exam: Present: normal bowel sounds. Absent: organomegaly, tenderness - Extremities Exam Extremities exam: Absent: edema - Neurological Exam Neurological exam: Present: CN II-XII intact, motor sensory deficit (weakness in the distal right upper extremity, particularly with wrist dorsiflexion, slicer machine operator , and finger abduction), oriented X3, other (language skills normal) - Psychiatric Psychiatric exam: Absent: anxious, depressed - Skin Skin exam: Absent: rash - Allied Health Notes Allied health notes reviewed: nursing
[2016-09-06] MEDS: BRIMONIDINE TARTRATE 0.15% EACHEYE SCH (09:06)
[2016-09-06] MEDS: POLYVINYL ALCOHOL 1.4% OPHTH 75 DROP/15 ML BTL EACHEYE SCH (09:08)
== END 2016-09-06 12:22 | disposition home or self-care (01) ==
LOC: ER 12:23 → IN 15:43
PROVIDERS: ADMIT Family Medicine; ATTEND Internal Medicine
DX: R29.898 Other symptoms and signs involving the musculoskeletal system (principal); I65.23 Occlusion and stenosis of bilateral carotid arteries; I09.89 Other specified rheumatic heart diseases; K11.6 Mucocele of salivary gland; E78.00 Pure hypercholesterolemia, unspecified; J45.20 Mild intermittent asthma, uncomplicated; F41.9 Anxiety disorder, unspecified; H40.9 Unspecified glaucoma; Z85.3 Personal history of malignant neoplasm of breast; Z79.899 Other long term (current) drug therapy; Z79.82 Long term (current) use of aspirin
CPT/HCPCS: 36415; 70450; 70551; 71010; 80048; 84484; 85025; 93005; 93010; 93041; 93880; 99217; 99219; 99285; G0378